=== PATIENT | male | born 1935 | race Caucasian/White ===

== ENCOUNTER → 2016-07-16 | Outpatient (CLI) | payer BC ==
[~2016-07-16] MED LIST: ASPI81TA28 PO; LSN5 PO; RIVA1TAB4 PO; TPRSR/50 PO
[2016-07-16 14:56] LABS: ALT/SGPT 56 U/L (12-78); BASO % 0.4 %; BASO ABS # 0.03 K/uL (0-0.2); BLOOD UREA NITROGEN 15 mg/dl (7-18); BUN/CREATININE RATIO 12.4 (10-20); CARBON DIOXIDE 27 mmol/L (21-32); CHLORIDE 104 mmol/L (98-107); COMPLETE YES; EOS % 0.7 %; GLUCOSE 118 mg/dl (70-99); HEMATOCRIT 46.2 % (42-52); IG% 0.1 %; LYMPH % 24.1 %; LYMPH ABS # 1.62 K/uL (1.2-3.4); MEAN CELL VOLUME 99.8 fL (80-100); MEAN CORPUSCULAR HEMOGLOBIN 34.8 pg (25-34); MEAN CORPUSCULAR HGB CONC 34.8 g/dl (32-36); MEAN PLATELET VOLUME 9.8 fL (7.4-10.4); MONO % 11.3 %; NEUT % 63.4 %; PLATELET COUNT 138 K/uL (130-400); POTASSIUM 4.6 mmol/L (3.5-5.1); RED BLOOD COUNT 4.63 M/uL (4.7-6.1); SODIUM 141 mmol/L (136-145); WHITE BLOOD COUNT 6.72 K/uL (4.8-10.8)
[2016-07-16 14:58] LABS: ALKALINE PHOSPHATASE 68 U/L (45-117); AST/SGOT 49 U/L (15-37)
--- NOTE | 2016-07-22 08:50 | CODING QUERY MEDICAL NECESSITY ---
CQSUPPORTING DIAGNOSIS NEEDED A supporting diagnosis is required for the test/procedure performed on this patient in order for us to be reimbursed by the patient's insurance. Please provide a supporting diagnosis for the following test/procedure listed below next to the test name along with your signature. *If there is no additional diagnosis for this patient that would support the following test/procedure please document that below next to the test/procedure. Test(s)/Procedure(s) that require a supporting diagnosis: DOS 07/16/16 BLOOD COUNT Provider Signature: Date: Thank you Theodora Cohen [employer] Once completed, please kindly fax back to [phone] For questions please call [phone]
== END | disposition home or self-care (01) ==
LOC: C.LAB1850 12:00
PROVIDERS: ATTEND Internal Medicine Cardiovascular Disease
DX: Z00.00 Encounter for general adult medical examination without abnormal findings (principal)

== ENCOUNTER → 2017-04-25 | Outpatient (CLI) | payer BC ==
[2017-04-25 14:24] LABS: BLOOD UREA NITROGEN 20 mg/dl (7-18); CALCIUM 9.2 mg/dl (8.5-10.1); CARBON DIOXIDE 27 mmol/L (21-32); CHOLESTEROL 239 mg/dl (0-200); CREATININE 1.25 mg/dl (0.60-1.40); GLUCOSE 109 mg/dl (70-99); POTASSIUM 4.6 mmol/L (3.5-5.1); SODIUM 135 mmol/L (136-145)
[2017-04-25 14:31] LABS: LDL CHOLESTEROL (DIRECT) 167 mg/dl
== END | disposition home or self-care (01) ==
LOC: C.LABSPEC 12:45
PROVIDERS: ATTEND Internal Medicine
DX: E78.5 Hyperlipidemia, unspecified (principal); I42.9 Cardiomyopathy, unspecified

== ENCOUNTER → 2017-05-17 | Outpatient (CLI) | payer BC ==
--- NOTE | 2017-05-17 14:26 | DIAGNOSTIC IMAGING REPORT ---
BILATERAL LOWER EXTREMITY ARTERIAL DOPPLER ULTRASOUND CLINICAL HISTORY: Bilateral lower external the peripheral artery disease. COMPARISON STUDY: No previous studies for comparison. FINDINGS: The right ankle to brachial measured 0.87 when using posterior tibial artery and 0.92 when using the dorsalis pedis. The left ankle to brachial index measured 0.86 when using the posterior tibial artery and 0.74 when using the dorsalis pedis. No vessel occlusion is identified by sonography. Moderate plaque is noted without convincing evidence for a hemodynamically significant stenosis within the lower extremities. There is biphasic and triphasic flow within the right common femoral and superficial femoral arteries with monophasic flow within the right popliteal, posterior tibial, anterior tibial and dorsalis pedis vessels. There is triphasic flow within left common femoral, superficial and popliteal arteries as well as the left anterior tibial artery with monophasic flow within the remainder of the arteries of the left lower extremity. IMPRESSION: 1. Mildly diminished bilateral ankle to brachial indices, as described above. 2. Moderate atherosclerotic plaque within each lower extremity without convincing evidence for a hemodynamically significant stenosis. 3. No vessel occlusion identified. Monophasic flow within multiple bilateral calf vessels, as described above. Electronically signed by: Damon Roth M.D. 05/17/2017 2:24 PM Dictated Date/Time: 05/17/2017 2:20 PM
== END | disposition home or self-care (01) ==
LOC: C.ULTR 12:43
PROVIDERS: ATTEND Internal Medicine
DX: I73.9 Peripheral vascular disease, unspecified (principal)

== ENCOUNTER → 2017-09-14 | Outpatient (CLI) | payer BC ==
[~2017-09-14] MED LIST changes: +LISI-730 PO; -LSN5 PO
[2017-09-14 13:37] LABS: BASO % 1.5 %; BASO ABS # 0.09 K/uL (0-0.2); EOS % 1.5 %; EOS ABS # 0.09 K/uL (0-0.5); HEMATOCRIT 41.9 % (42-52); HEMOGLOBIN 14.9 g/dL (14.0-18.0); IG# 0.01 K/uL (0.00-0.02); LYMPH % 26.8 %; LYMPH ABS # 1.56 K/uL (1.2-3.4); MEAN CELL VOLUME 107.2 fL (80-100); MEAN CORPUSCULAR HEMOGLOBIN 38.1 pg (25-34); MEAN CORPUSCULAR HGB CONC 35.6 g/dl (32-36); MONO % 9.6 %; MONO ABS # 0.56 K/uL (0.11-0.59); NEUT % 60.4 %; NEUT ABS # 3.51 K/uL (1.4-6.5); PLATELET COUNT 200 K/uL (130-400); RED CELL DISTRIBUTION WIDTH CV 13.8 % (11.5-14.5); RED CELL DISTRIBUTION WIDTH SD 53.3 fL (36.4-46.3); WHITE BLOOD COUNT 5.82 K/uL (4.8-10.8)
[2017-09-14 13:59] LABS: ALBUMIN 3.7 gm/dl (3.4-5.0); ALKALINE PHOSPHATASE 68 U/L (45-117); ALT/SGPT 44 U/L (12-78); AST/SGOT 51 U/L (15-37); BLOOD UREA NITROGEN 16 mg/dl (7-18); CALCIUM 9.2 mg/dl (8.5-10.1); CARBON DIOXIDE 28 mmol/L (21-32); CREATININE 1.13 mg/dl (0.60-1.40); GLUCOSE 94 mg/dl (70-99); POTASSIUM 4.5 mmol/L (3.5-5.1); SODIUM 137 mmol/L (136-145); TOTAL PROTEIN 7.4 gm/dl (6.4-8.2)
[2017-09-14 14:10] LABS: HEMOGLOBIN A1C 5.2 % (4.5-5.6)
== END | disposition home or self-care (01) ==
LOC: C.LABSPEC 13:13
PROVIDERS: ATTEND Internal Medicine
DX: R73.9 Hyperglycemia, unspecified (principal); I48.91 Unspecified atrial fibrillation; R25.1 Tremor, unspecified; G72.9 Myopathy, unspecified

== ENCOUNTER → 2017-09-16 | Outpatient (CLI) | payer BC ==
[~2017-09-16] MED LIST changes: +GADAVIST IV PRN
--- NOTE | 2017-09-16 10:07 | DIAGNOSTIC IMAGING REPORT ---
BRAIN COMBO CLINICAL HISTORY: DISEQUALIBRIUM COMPARISON STUDY: No previous studies for comparison. TECHNIQUE: Utilizing a 1.5 Brooke magnet and dedicated coil, multiplanar, multiecho imaging of the brain was performed pre and postcontrast administration. IV administration of 1.5 mL of Gadavist contrast was uneventful. FINDINGS: Diffusion-weighted images are negative for an acute ischemic event. Age-related atrophy and chronic small vessel change. Mild compensatory prominence of the ventricular system. No abnormal postcontrast enhancement. IMPRESSION: Age-related change. No acute process. The above report was generated using voice recognition software. It may contain grammatical, syntax or spelling errors. Electronically signed by: Luis Mehta M.D. 09/16/2017 10:06 AM Dictated Date/Time: 09/16/2017 10:05 AM
== END | disposition home or self-care (01) ==
LOC: C.MRI 08:52
PROVIDERS: ATTEND Internal Medicine
DX: R42 Dizziness and giddiness (principal)